=== PATIENT | male | born 1960 | race African-American/Black ===

== ENCOUNTER 2023-05-05 15:55 | Observation (INO) ==
[2023-05-05 16:31] LABS: ABS Basophils 0.1 10^3/uL (0.0-0.1); ABS Eosinophils 0.1 10^3/uL (0.0-0.5); ABS Lymphocytes 2.8 10^3/uL (1.0-4.8); ABS Monocytes 0.9 10^3/uL (0.0-1.1); ABS Neutrophils 3.8 10^3/uL (1.5-7.6); ABS Nucleated RBC 0.01 10^3/ul; Eosinophil % 1.9 %; Hematocrit 51.2 % (38-53); Lymphocyte % 35.9 %; Mean Corpuscular Hemoglobin 31.5 pg (27-33); Mean Corpuscular Hgb Conc 35.2 g/dL (31-36); Mean Corpuscular Volume 89.5 fL (80-97); Mean Platelet Volume 7.9 fL (7.5-11.2); Nucleated Red Blood Cells % 0.2 /100 WBC (0.0-0.4); Platelet Count 262 10^3/uL (150-450); Red Blood Count 5.72 10^6/uL (4.06-5.63); Red Cell Distribution Width 13.3 % (12-17); White Blood Count 7.8 10^3/uL (3.6-10.2)
[2023-05-05 16:47] LABS: Albumin 4.4 g/dL (3.2-5.2); Albumin/Globulin Ratio 1.5 (1-3); Calcium 10.4 mg/dL (8.6-10.3); Creatinine, Serum 1.21 mg/dL (0.67-1.17); Globulin 2.9 g/dL (2-4); Potassium 3.9 mmol/L (3.5-5.0); Total Bilirubin 0.6 mg/dL (0.2-1.0); Total Protein 7.3 g/dL (6.4-8.9); eGFR CKD-EPI 68.1 (>60)
[2023-05-05 16:48] LABS: INR 1.23 (0.88-1.18)
[2023-05-05] MEDS ORDERED: Iohexol 350 (CONTRAST) 500 ML MDV IV ONE (17:09)
[2023-05-05 18:19] LABS: High Sensitivity Troponin 1 Hr 7 pg/mL (<20)
[2023-05-06] MEDS: Calcium Carb (TUMS) 500 mg CHEW TAB PO SCH ×3 (00:13→20:52)
[2023-05-06 01:39] LABS: HDL Cholesterol 42.5 mg/dL
[2023-05-06] MEDS: Lactated Ringers 1000 ml BAG 1,000 ML IV SCH ×2 (02:17→11:00)
[2023-05-06] MEDS ORDERED: Enoxaparin 40 MG/0.4 ML SYR SUBCUT SCH (06:00)
[2023-05-06 09:18] LABS: ABS Basophils 0.1 10^3/uL (0.0-0.1); ABS Eosinophils 0.2 10^3/uL (0.0-0.5); ABS Lymphocytes 2.2 10^3/uL (1.0-4.8); ABS Monocytes 0.7 10^3/uL (0.0-1.1); ABS Neutrophils 4.2 10^3/uL (1.5-7.6); ABS Nucleated RBC 0.03 10^3/ul; Eosinophil % 2.4 %; Hematocrit 48.2 % (38-53); Hemoglobin 16.6 g/dL (13.2-16.3); Lymphocyte % 30.3 %; Mean Corpuscular Hemoglobin 30.7 pg (27-33); Mean Corpuscular Hgb Conc 34.6 g/dL (31-36); Mean Corpuscular Volume 88.9 fL (80-97); Mean Platelet Volume 7.8 fL (7.5-11.2); Nucleated Red Blood Cells % 0.3 /100 WBC (0.0-0.4); Platelet Count 234 10^3/uL (150-450); Red Blood Count 5.42 10^6/uL (4.06-5.63); Red Cell Distribution Width 13.2 % (12-17); White Blood Count 7.4 10^3/uL (3.6-10.2)
[2023-05-06 09:38] LABS: Albumin 3.8 g/dL (3.2-5.2); Albumin/Globulin Ratio 1.3 (1-3); Calcium 9.3 mg/dL (8.6-10.3); Creatinine, Serum 1.18 mg/dL (0.67-1.17); Globulin 2.9 g/dL (2-4); Magnesium 1.9 mg/dL (1.9-2.7); Potassium 3.8 mmol/L (3.5-5.0); Total Bilirubin 0.6 mg/dL (0.2-1.0); Total Protein 6.7 g/dL (6.4-8.9); eGFR CKD-EPI 70.2 (>60)
[2023-05-06] MEDS ORDERED: Heparin DRIP 25,000 UNITS BAG 25,000 UNITS/500 ML BAG IV SCH (10:45)
[2023-05-06 11:20] LABS: ABS Basophils 0.1 10^3/uL (0.0-0.1); ABS Eosinophils 0.2 10^3/uL (0.0-0.5); ABS Lymphocytes 2.7 10^3/uL (1.0-4.8); ABS Monocytes 0.8 10^3/uL (0.0-1.1); ABS Neutrophils 4.2 10^3/uL (1.5-7.6); ABS Nucleated RBC 0.03 10^3/ul; Hematocrit 49.8 % (38-53); Hemoglobin 17.3 g/dL (13.2-16.3); Lymphocyte % 33.7 %; Mean Corpuscular Hemoglobin 30.8 pg (27-33); Mean Corpuscular Hgb Conc 34.7 g/dL (31-36); Mean Corpuscular Volume 88.9 fL (80-97); Mean Platelet Volume 7.8 fL (7.5-11.2); Nucleated Red Blood Cells % 0.3 /100 WBC (0.0-0.4); Platelet Count 239 10^3/uL (150-450); Red Blood Count 5.61 10^6/uL (4.06-5.63); Red Cell Distribution Width 13.3 % (12-17); White Blood Count 7.9 10^3/uL (3.6-10.2)
[2023-05-06 11:28] LABS: Creatinine, Serum 1.23 mg/dL (0.67-1.17); eGFR CKD-EPI 66.8 (>60)
[2023-05-06] MEDS ORDERED: Sulfur Hexaflouride MICROSPHR 25 MG VIAL ONE (11:30)
[2023-05-06] MEDS ORDERED: Heparin 5000 UNITS/ML 1 mL VIAL IV SCH (12:00)
[2023-05-06] MEDS ORDERED: Calcium Carb (TUMS) 500 mg CHEW TAB PO PRN (12:12)
[2023-05-06 13:38] LABS: C Reactive Protein 2.83 mg/L (<8.01)
[2023-05-06 14:36] LABS: High Sensitivity Troponin 1 Hr 7 pg/mL (<20)
[2023-05-07 07:30] LABS: ABS Basophils 0.1 10^3/uL (0.0-0.1); ABS Eosinophils 0.2 10^3/uL (0.0-0.5); ABS Lymphocytes 2.5 10^3/uL (1.0-4.8); ABS Monocytes 0.8 10^3/uL (0.0-1.1); ABS Neutrophils 2.8 10^3/uL (1.5-7.6); ABS Nucleated RBC 0.01 10^3/ul; Eosinophil % 3.8 %; Hematocrit 46.9 % (38-53); Hemoglobin 16.3 g/dL (13.2-16.3); Lymphocyte % 39.1 %; Mean Corpuscular Hemoglobin 31.3 pg (27-33); Mean Corpuscular Hgb Conc 34.7 g/dL (31-36); Mean Corpuscular Volume 90.4 fL (80-97); Nucleated Red Blood Cells % 0.1 /100 WBC (0.0-0.4); Platelet Count 237 10^3/uL (150-450); Red Blood Count 5.19 10^6/uL (4.06-5.63); Red Cell Distribution Width 13.2 % (12-17); White Blood Count 6.4 10^3/uL (3.6-10.2)
[2023-05-07 07:59] LABS: Creatinine, Serum 1.14 mg/dL (0.67-1.17); Potassium 4.5 mmol/L (3.5-5.0); eGFR CKD-EPI 73.2 (>60)
[2023-05-07] MEDS: Calcium Carb (TUMS) 500 mg CHEW TAB PO SCH (10:13)
[2023-05-07 13:23] VITALS: BP 141/80
[2023-05-07] MEDS ORDERED: Regadenoson 0.4 MG/5 ML SYRINGE ONE (14:10)
== END 2023-05-07 13:30 ==
LOC: ED 15:55 → EDHOLD 15:55 → SUATTDRO 20:30 → MEDTELE 21:36
PROVIDERS: ADMIT Hospitalist; ATTEND Internal Medicine